=== PATIENT | female | born 1940 | race Caucasian/White ===

== ENCOUNTER → 2016-12-30 | Day surgery (SDC) | payer MEDICARE ==
--- NOTE | 2016-12-28 17:37 | MH ---
cc: Dustin ESCOBAR M.D. DATE OF ADMISSION 12/30/2016 ADMISSION DIAGNOSIS Torn medial meniscus of left knee now being admitted for arthroscopy left knee. HISTORY This is a pleasant 76-year female who is being admitted today for arthroscopy left knee due to a torn medial meniscus as diagnosed by [facility] on October 04, 2016. PAST MEDICAL HISTORY Other past history: 1. The patient has a history of anxiety. 2. Depression. 3. Hypertension. 4. Back pain. CURRENT MEDICATIONS Include: 1. Estratest. 2. Glucosamine Chondroitin. 3. Ibuprofen which stopped before surgery. 4. Lisinopril. 5. Omeprazole. 6. Premarin. PAST SURGICAL HISTORY Previous surgeries include: 1. Appendectomy. 2. . 3. Colonoscopy. 4. Tonsillectomy. 5. Tubal ligation. REVIEW OF SYSTEMS Noncontributory. FAMILY HISTORY Noncontributory. SOCIAL HISTORY She do es not smoke. Drinks one to two glass of wine per week. ALLERGIES She will has no known allergies. PHYSICAL EXAMINATION GENERAL: We find a 76-year female well-developed, well-nourished, alert and oriented times three complaining of pain in her left knee. VITAL SIGNS: Blood pressure 138/82, pulse 72, respirations 18, temperature 98.4, pulse oximetry 98% on room air. BMI 30. HEENT: Eyes PERRL, EOMI. Ears, nose, mouth clear. NECK: Supple. LUNGS: Clear. HEART: Regular rate. ABDOMEN: Soft. Positive bowel sounds, nontender. EXTREMITIES: Reveal the left knee be tender, neurovascularly intact to her toes. IMPRESSION At this time is torn medial meniscus left knee. PLAN Admission for arthroscopy left knee today. The patient understands the procedure well and was given prescription for postoperative pain control in the office. JMD NUNU Parish/REGINE /5:26 PM /5:36 PM
[~2016-12-30] VITALS: Ht 157.5 cm; Wt 75.3 kg
[~2016-12-30] MED LIST: *LABETALOL HCL 100 MG/20 ML VIAL PERIprocedural Use ONLY ONE; *MEPERIDINE 25 MG INJ VIAL PERIprocedural Use ONLY ONE; *morphine SULFATE 8 MG/ML PERIprocedure ONLY ONE; ACETAMINOPHEN 1000 MG/100 ML VIAL IV ONE; ACETAMINOPHEN/HYDROcodone 325 MG/5 MG TAB PO PRN; BUPIVACAINE HCL PF 0.25% 30 ML VIAL ONE; CHLORHEXIDINE GLUCONATE 2 % 1 PACK (2 CLOTHS) TOPICAL PRN; DEXAMETHASONE SOD PHOS 4 MG/ML VIAL IM ONE; DO NOT ADM ANY ANTICOAGULANT DRUGS PRN; ESCI10TA PO; INSULIN HUMAN REGULAR 1,000 UNITS/10 ML VIAL SQ PRN; LACTATED RINGER'S 1000 ML INJ 1,000 ML IV ONE; LACTATED RINGER'S 1000 ML IV PRN; LISI10TA3 PO; MEPERIDINE HCL 50 MG/ML VIAL IM PRN; METOPROLOL TARTRATE 25 MG TAB PO PRN; MIDAZOLAM HCL 2 MG/2 ML VIAL ONE; OMEP20TA PO; ONDANSETRON HCL 4 MG/2 ML VIAL IV PUSH ONE; ONDANSETRON ODT 4 MG TAB PO PRN; POVIDONE IODINE 5% (ANTISEPSIS KIT) 4 APPLICATIONS EACH NARE PRN; PROPOFOL 200 MG/20 ML AMP IV ONE; REFRDRO EACH EYE; SODIUM CHLORID 0.9% 500 ML IV PRN; ceFAZolin 2 GM PREMIX 50 ML ONE; ePHEDrine/NS 25 MG/5 ML SYR IV ONE; fentaNYL CITRATE 250 MCG/5 ML AMP ONE; methylPREDNISolone ACETATE 40 MG/ML VIAL ONE
[2016-12-30 07:53] VITALS: BP 163/82; PULSE 66; RESP 18; TEMP 97.9; O2SAT 96
--- NOTE | 2016-12-30 11:30 | EKG ---
Date Performed: 12/30/2016 Time Performed: 08:43:55 PTAGE: 76 years EKG: Sinus rhythm BORDERLINE LEFT AXIS DEVIATION VOLTAGE CRITERIA FOR LVH Nonspecific T wave changes ABNORMAL ECG COMP ARED TO PRIOR ELECTROCARDIOGRAM, T wave changes are now present. PREVIOUS TRACING : 04/13/2008 14.37 DOCTOR: Elgin Barnett Interpretating Date/Time 12/30/2016 11:30:10
[2016-12-30 13:25] VITALS: BP 143/78; PULSE 82; RESP 18; TEMP 97.2; O2SAT 98
--- NOTE | 2016-12-31 15:38 | MP ---
cc: Dustin ESCOBAR M.D. DATE OF SURGERY: 12/30/2016. PREOPERATIVE DIAGNOSIS: 1. Internal derangement left knee. 2. Arthritis right knee. POSTOPERATIVE DIAGNOSIS: 1. Internal derangement left knee. 2. Arthritis right knee. OPERATIVE PROCEDURE PERFORMED: 1. Arthroscopy left knee with chondroplasty medial femoral condyle. 2. Injection of cortisone, right knee. SURGEON: Dustin Escobar MD. PIPELAYER: SHUN Pride. ANESTHESIA: LMA. DESCRIPTION OF THE PROCEDURE IN DETAIL: The patient was brought to the operating room and placed on the operating room table in the supine position. After successful induction of general anesthesia, the patient's ?? leg was prepped and draped in the usual manner. The knee was then placed in a knee nash and tightened. Arthroscopic examination was then performed by making a stab wound over the proximal superior and medial aspect of the patellofemoral joint for insertion of the inflow cannula and fluid, followed by stab wounds over the medial and lateral joint margins respectively for insertion of the arthroscope, shaver and probe. Arthroscopic examination was then performed which revealed intact later al compartment, intact anterior cruciate ligament, intact patellofemoral joint. The medial compartment was found to have grade 3 chondromalacic changes mainly of the weightbearing surface of the medial femoral condyle which was shaved smooth using the ArthroCare System. The rest of the medial compartment and meniscus was found to be intact. The wound was irrigated copiously with lactated Ringer's solution. Excess fluid was removed. 4 cc of 0.25% Marcaine plain with 4 cc of Decadron were inserted into the knee joint. Next the right knee was prepped and 4 cc of Decadron with 4 mL of 0.25% Marcaine Plain was inserted into the right knee for her arthritis. The wounds were covered with Xeroform gauze and sterile dressing. The left knee was wrapped from thigh to toes. No drain utilized. The skin on the left knee was approximated with interrupted 4-0 nylon suture. The patient tolerated the procedure well and left the operating room in satisfactory condition. Total blood loss was 10 cc. NOTE: SHUN Pride, was present during the entire procedure to include patient positioning and the procedure. The medical necessity of a nurse practitioner and certified surgical first assistant was indicated in this case due to the surgical complexity of the case itself. During the surgical case, the surgical lead was working at the back table while my surgical lead and IMMIGRATION CASE MANAGER were directly assisting me. J. MD NUNU Olea/NERY /11:00 AM /3:30 PM
== END | disposition home or self-care (01) ==
LOC: HSDC 06:40
PROVIDERS: ATTEND Surgery
DX: M23.92 Unspecified internal derangement of left knee (principal); M17.11 Unilateral primary osteoarthritis, right knee; M94.262 Chondromalacia, left knee; R94.31 Abnormal electrocardiogram [ECG] [EKG]
CPT/HCPCS: 01382; 20610; 29870; 93005; J0131; J0690; J1030; J1100; J2175; J2250; J2270; J2405; J3010; J7120